=== PATIENT | male | born 2000 | race Two or more races ===

== ENCOUNTER 2019-01-14 15:35 | Emergency (ER) | payer BC, MEDICAID ==
--- NOTE | 2019-01-14 15:54 | ER Document Report ---
ED Medical Screen (RME) - General Chief Complaint: Fever Stated Complaint: WEAKNESS Time Seen by Provider: 01/14/19 15:47 Primary Care Provider: AZEEM SEGURA MD [Primary Care Provider] - Follow up as needed Mode of Arrival: Ambulatory Information source: Patient Notes: 18-year-old male presented to ED for complaint of nausea vomiting not feeling right feeling like he is hallucinating. He states that yesterday he became nauseated had a sore throat and did not feel correct. He states today he was tossing and turning and seeing tables and things that were not there and then finally realized that he was not asleep he was awake and seeing these things so became concerned woke his brother up and had him bring him to the emergency room. He states his girlfriend was recently diagnosed with strep and he needs to be checked out. He is alert oriented respirations regular and unlabored speaking in full sentences walks with a even steady gait. He does have a history of a tonsillectomy. He states he does not smoke drink or do any drugs. And lives with his brother. I have greeted and performed a rapid initial assessment of this patient. A com prehensive ED assessment and evaluation of the patient, analysis of test results and completion of medical decision making process will be conducted by an additional ED providers. - Related Data Allergies/Adverse Reactions: No Known Allergies Allergy (Unverified 01/14/19 15:48) Physical Exam - Vital signs Vitals: Temp Pulse Resp BP Pulse Ox 99.2 F 96 H 16 118/59 L 97 01/14/19 15:41 01/14/19 15:41 01/14/19 15:41 01/14/19 15:41 01/14/19 15:41 Course - Vital Signs Vital signs: Temp Pulse Resp BP Pulse Ox 99.2 F 96 H 16 118/59 L 97 01/14/19 15:41 01/14/19 15:41 01/14/19 15:41 01/14/19 15:41 01/14/19 15:41 Doctor's Discharge - Discharge Referrals: AZEEM SEGURA MD [Primary Care Provider] - Follow up as needed
[2019-01-14 16:16] LABS: ABSOLUTE EOSINOPHILS # (AUTO) 0.1 10^3/uL (0.0-0.6); ABSOLUTE LYMPHOCYTES (AUTO) 0.8 10^3/uL (0.5-4.7); ABSOLUTE MONOCYTES (AUTO) 1.2 10^3/uL (0.1-1.4); ABSOLUTE NEUT (AUTO) 8.8 10^3/uL (1.7-8.2); BASOPHILS % (AUTO) 0.4 % (0-2); EOSINOPHILS % (AUTO) 0.7 % (0-6); HEMATOCRIT 40.6 % (37.9-51.0); LYMPHOCYTES % (AUTO) 6.9 % (13-45); MEAN CORPUSCULAR HEMOGLOBIN 28.5 pg (27.0-33.4); MEAN CORPUSCULAR HGB CONC 34.5 g/dL (32.0-36.0); MEAN CORPUSCULAR VOLUME 83 fl (80-97); MONOCYTES % (AUTO) 10.9 % (3-13); PLATELET COUNT 223 10^3/uL (150-450); RED BLOOD COUNT 4.91 10^6/uL (4.35-5.55); RED CELL DISTRIBUTION WIDTH 14.2 % (11.5-14.0); SEGMENTED NEUTROPHILS % (AUTO) 81.1 % (42-78); TOTAL CELLS COUNTED % (AUTO) 100 %; WHITE BLOOD COUNT 10.9 10^3/uL (4.0-10.5)
[2019-01-14 16:33] LABS: ALBUMIN 5.2 g/dL (3.7-5.6); ALKALINE PHOSPHATASE 60 U/L (65-260); ANION GAP 12 (5-19); ASPARTATE AMINO TRANSFERASE 25 U/L (10-45); BILIRUBIN,DIRECT 0.3 mg/dL (0.0-0.4); BLOOD UREA NITROGEN 18 mg/dL (7-20); CARBON DIOXIDE 26 mmol/L (22-30); CHLORIDE 99 mmol/L (98-107); GLUCOSE 99 mg/dL (75-110); POTASSIUM 4.4 mmol/L (3.6-5.0)
[2019-01-14 16:46] LABS: APPEARANCE,URINE SLIGHTLY-CLOUDY; BILIRUBIN,URINE NEGATIVE (NEGATIVE); COLOR,URINE AMBER; GLUCOSE, URINE NEGATIVE (NEGATIVE); KETONES,URINE NEGATIVE (NEGATIVE); LEUKOCYTE ESTERASE,URINE NEGATIVE (NEGATIVE); NITRITE,URINE NEGATIVE (NEGATIVE); PROTEIN,URINE NEGATIVE (NEGATIVE); URINE SPECIFIC GRAVITY 1.029; UROBILINOGEN,URINE NEGATIVE mg/dL (<2.0)
[2019-01-14] MEDS ORDERED: FAMOTIDINE 20 MG TABLET PO ONE (16:50)
[2019-01-14] MEDS ORDERED: METOCLOPRAMIDE HCL ORAL SOLN 10 MG/10 ML UDCUP PO ONE (16:50)
[2019-01-14] MEDS ORDERED: MAG HYDROX/AL HYDROX/SIMETH SUSP 30 ML UDCUP PO ONE (16:50)
[2019-01-14] MEDS ORDERED: LIDOCAINE 2% VISCOUS SOLN 20 ML UDCUP PO ONE (16:50)
--- NOTE | 2019-01-14 16:51 | ER Document Report ---
ED General - General Chief Complaint: Fever Stated Complaint: WEAKNESS Time Seen by Provider: 01/14/19 15:47 Primary Care Provider: AZEEM SEGURA MD [Primary Care Provider] - Follow up as needed Mode of Arrival: Ambulatory Notes: Patient is a 18-year-old male presents to the emergency department with a chief complaint of fever. Patient states over the past 24 hours he is developed a sore throat, headache and one episode of vomiting. Patient states he woke up around 3 AM and vomited his dinner. Patient states he has not vomited since then. Patient reports a subjective fever with chills and cold sweats. Patient reports his girlfriend was recently diagnosed with strep throat and he is concerned he may be developing this. Patient states that as he was in and out of sleep last night he felt like he was hallucinating and fell a table that was really not there. Patient states he did come to the emergency department as he was hallucinating and this scared him. Patient also reports coughing up blood. Patient states this happens every morning and has been present for years. Patient states he is never been checked out for this. Patient states he did used to smoke cigarettes but has quit. Patient states he does smoke marijuana with his last use yesterday. Patient denies any other drug use. Patient reports generalized abdominal pain. TRAVEL OUTSIDE OF THE [place] IN LAST 30 DAYS: No - Related Data Allergies/Adverse Reactions: No Known Allergies Allergy (Unverified 01/14/19 15:48) Past Medical History - General Information source: Patient - Social History Smoking Status: Never Smoker Frequency of alcohol use: None Drug Abuse: None Lives with: Family Family History: None Patient has suicidal ideation: No Patient has homicidal ideation: No - Past Medical History Cardiac Medical History: Reports: None Pulmonary Medical History: Reports: None EENT Medical History: Reports: None Neurological Medical History: Reports: None Endocrine Medical History: Reports: None Renal/ Medical History: Reports: None. Denies: Hx Peritoneal Dialysis Malignancy Medical History: Reports None GI Medical History: Reports: None Musculoskeletal Medical History: Reports None Skin Medical History: Reports None Psychiatric Medical History: Reports: None Traumatic Medical History: Reports: None Infectious Medical History: Reports: None Surgical Hx: Negative Review of Systems - Review of Systems Constitutional: See HPI EENT: See HPI Cardiovascular: No symptoms reported Respiratory: See HPI Gastrointestinal: See HPI Genitourinary: No symptoms reported Male Genitourinary: No symptoms reported Musculoskeletal: No symptoms reported Skin: No symptoms reported Hematologic/Lymphatic: No symptoms reported Neurological/Psychological: No symptoms reported Physical Exam - Vital signs Vitals: Temp Pulse Resp BP Pulse Ox 99.2 F 96 H 16 118/59 L 97 01/14/19 15:41 01/14/19 15:41 01/14/19 15:41 01/14/19 15:41 01/14/19 15:41 Interpretation: Normal - Notes Notes: GENERAL: Well-appearing, well-nourished and in no acute distress. HEAD: Atraumatic, normocephalic. EYES: Pupils equal round and reactive to light, extraocular movements intact, sclera anicteric, conjunctiva are normal. ENT: TMs normal, nares patent, oropharynx clear without exudates. Moist mucous membranes. NECK: Normal range of motion, supple without lymphadenopathy or JVD. LUNGS: Breath sounds clear to auscultation bilaterally and equal. No wheezes rales or rhonchi. HEART: Regular rate and rhythm without murmurs, rubs or gallops. ABDOMEN: Soft, nontender, normoactive bowel sounds. No guarding, no rebound. No masses appreciated. BACK: No cervical, thoracic, lumbar midline tenderness. No saddle anesthesia, normal distal neurovascular exam. GENITOURINARY: Deferred. EXTREMITIES: Normal range of motion, no pitting or edema. No clubbing or cyanosis. NEUROLOGICAL: Cranial nerves II through XII grossly intact. Normal speech, normal gait. PSYCH: Normal mood, normal affect. SKIN: Warm, Dry, normal turgor, no rashes or lesions noted. Course - Re-evaluation Re-evalutation: 01/14/19 18:04 Upon reevaluation patient reports that his abdominal pain has improved since receiving the GI cocktail. I did inform the patient to take an [id number] Pepcid 20 mg daily for the next 30 days to see if this would help with his abdominal pain and "coughing up blood. "I did inform the patient at this time I do not think this is an emergent issue as this been going on for years. Patient does have a primary care physician that he will follow up with. I did inform the patient that his throat culture will return in the next 24 to 48 hours and he will be contacted if he needs to be placed on antibiotic. Patient verbalizes understanding and is in agreement with treatment plan at this time. Patient is in no acute distress and requesting something to drink. I did inform the patient to push fluids to stay hydrated. Patient placed on strict return precautions. Patient was educated to refrain from smoking as this can be an irritant. - Vital Signs Vital signs: Temp Pulse Resp BP Pulse Ox 99.2 F 96 H 16 118/59 L 97 01/14/19 15:41 01/14/19 15:41 01/14/19 15:41 01/14/19 15:41 01/14/19 15:41 - Laboratory Result Diagrams: 01/14/19 16:05 01/14/19 16:05 Laboratory results interpreted by me: 01/14/19 01/14/19 16:05 16:05 WBC 10.9 H RDW 14.2 H Lymph % (Auto) 6.9 L Absolute Neuts (auto) 8.8 H Seg Neutrophils % 81.1 H Alkaline Phosphatase 60 L Discharge - Discharge Clinical Impression: Sore throat (viral) Abdominal pain Qualifiers: Abdominal location: epigastric Qualified Code(s): R10.13 - Epigastric pain Gastritis Qualifiers: Gastritis type: unspecified gastritis Chronicity: chronic Gastritis bleeding: presence of bleeding unspecified Qualified Code(s): K29.50 - Unspecified chronic gastritis without bleeding Condition: Stable Disposition: HOME, SELF-CARE Additional Instructions: Today you are seen in the emergency department for sore throat, fever and coughing up blood. You were concerned that you may have had strep as your significant other was tested positive the other day. At this time your strep test was negative but we have sent off a culture which will return in the next 24 to 48 hours. If this is positive you will be called so we can prescribe you an antibiotic. Take Tylenol as needed for pain or fever. Please continue to push fluids to stay hydrated. We did obtain a chest x-ray as you had reported years of cough and blood. At this time there is no acute abnormality such as a cyst/mass, broken ribs. The coughing up of blood could be coming from your stomach due to a gastritis. Please try to avoid spicy or irritating foods, NSAIDs such as Aleve, aspirin, BC powders as this can irritate your stomach. Please take an [id number] Pepcid 20 mg every day for the next 30 days to see if this helps with your pain. Please follow-up with your primary care physician for repeat evaluation. Please return the emergency department if you develop shortness of breath, difficulty breathing, increased throat pain, high fever, rash, vomiting or any other concerning signs or symptoms. Sore Throat Sore throats may be caused by viruses, bacteria, or fungi. Most are due to a virus, and must get better on their own. Bacterial sore throats, particularly those due to "strep," need treatment with antibiotics. If an antibiotic is prescribed, be sure to take the medication for a full 10 days. Failure to take the antibiotic can result in complications such as rheumatic fever. Sometimes, an injection of antibiotics is given instead of pills or liquid. This single "shot" is equal in effectiveness to the oral medication. To relieve symptoms, take acetaminophen for pain. Sip clear liquids frequently, or eat popsicles or ice chips. Anesthetic sprays or lozenges may help. Make sure the air in the room is not too dry. Avoid using decongestants or antihistamines. Call the doctor if there is no improvement in two days, or if you have difficulty breathing, increasing throat pain, high fever, rash, or frequent vomiting. Gastritis You have an inflammation of the stomach called gastritis. This commonly causes upper abdominal pain, nausea, and vomiting. In severe cases, bleeding of the stomach lining can occur. Gastritis can be caused by bacteria or viruses, alcohol, or stomach-irritating drugs. Begin with sips of clear liquids. Take increasing amounts of fluid over the first 24 hours. Then start small amounts of bland foods (such as dry toast, applesauce, mashed potato). Gradually resume your usual diet. You should take antacids every two hours until the pain has subsided. Acid-suppressing drugs may be prescribed as well. Avoid aspirin, caffeine, tobacco, and alcohol. If the abdominal pain worsens, or there is evidence of major bleeding in the stomach (such as black, tarry stool, bloody or black vomit, or lightheadedness), you should return immediately. Call the doctor if you aren't improved in 24 to 36 hours. Referrals: AZEEM SEGURA MD [Primary Care Provider] - Follow up as needed
[2019-01-14 17:02] LABS: URINE AMPHETAMINES SCREEN NEGATIVE; URINE BARBITURATES SCREEN NEGATIVE; URINE BENZODIAZEPINES SCREEN NEGATIVE; URINE COCAINE SCREEN NEGATIVE; URINE MARIJUANA (THC) SCREEN UNCONFIRMED POSITIVE; URINE METHADONE SCREEN NEGATIVE; URINE PHENCYCLIDINE SCREEN NEGATIVE
--- NOTE | 2019-01-14 17:40 | RADIOLOGY REPORT (SQ) ---
EXAM DESCRIPTION: CHEST 2 VIEWS COMPLETED DATE/TIME: 01/14/2019 5:21 pm REASON FOR STUDY: COUGHING UP BLOOD COMPARISON: None. EXAM PARAMETERS: NUMBER OF VIEWS: two views TECHNIQUE: Digital Frontal and Lateral radiographic views of the chest acquired. RADIATION DOSE: NA LIMITATIONS: none FINDINGS: LUNGS AND PLEURA: No opacities, masses or pneumothorax. No pleural effusion. MEDIASTINUM AND HILAR STRUCTURES: No masses or contour abnormalities. HEART AND VASCULAR STRUCTURES: Heart normal size. No evidence for failure. BONES: No acute findings. HARDWARE: None in the chest. OTHER: No other significant finding. IMPRESSION: NO ACUTE DISEASE. TECHNICAL DOCUMENTATION: JOB ID: [id number] [id number] 2010 [employer]- All Rights Reserved Reading location - IP/workstation name: [email or web address]
[2019-01-14] MEDS ORDERED: ACETAMINOPHEN 325 MG TABLET PO ONE (18:04)
[2019-01-14 18:24] VITALS: BP 124/64
== END 2019-01-14 18:24 | disposition home or self-care (01) ==
LOC: ER 15:35
DX: K29.50 Unspecified chronic gastritis without bleeding (principal); R10.13 Epigastric pain; J02.9 Acute pharyngitis, unspecified; R53.1 Weakness; R50.9 Fever, unspecified
CPT/HCPCS: 36415; 87070; 87880; 85025; 80053; 81001; 80307; 71046; J3490 ×5; 99283

== ENCOUNTER 2019-02-23 18:58 | Emergency (ER) | payer MEDICAID ==
[2019-02-23 19:20] VITALS: BP 133/58
[2019-02-23] MEDS ORDERED: IBUPROFEN 800 MG TABLET PO ONE (19:32)
[2019-02-23] MEDS ORDERED: DIPH/PERTUSS(ACELL)/TETANUS VAC/PF 0.5 ML SYR (>=10YO) IM ONE (19:32)
--- NOTE | 2019-02-23 19:34 | ER Document Report ---
ED Medical Screen (RME) - General Stated Complaint: METAL SHAVINGS IN LEFT HAND Time Seen by Provider: 02/23/19 19:31 Primary Care Provider: AZEEM SEGURA MD [Primary Care Provider] - Follow up as needed Mode of Arrival: Ambulatory Information source: Patient Notes: Patient reports working with metal and getting a shard of metal to the left hand. Patient states that he was able to remove some pieces of metal from his hand but is concerned he may have a retained piece. Patient denies any fever. Patient uncertain when his last tetanus immunization was. I have greeted and performed a rapid initial assessment of this patient. A comprehensive ED assessment and evaluation of the patient, analysis of test results and completion of the medical decision making process will be conducted by additional ED providers. TRAVEL OUTSIDE OF THE [place] IN LAST 30 DAYS: No - Related Data Allergies/Adverse Reactions: No Known Allergies Allergy (Unverified 01/14/19 15:48) Past Medical History Renal/ Medical History: Denies: Hx Peritoneal Dialysis Physical Exam - Vital signs Vitals: Temp Pulse Resp BP Pulse Ox 98.3 F 81 16 133/58 H 97 02/23/19 19:18 02/23/19 19:18 02/23/19 19:18 02/23/19 19:18 02/23/19 19:18 - General Notes: Tenderness to dorsal left hand, no surrounding erythema Course - Vital Signs Vital signs: Temp Pulse Resp BP Pulse Ox 98.3 F 81 16 133/58 H 97 02/23/19 19:18 02/23/19 19:18 02/23/19 19:18 02/23/19 19:18 02/23/19 19:18 Doctor's Discharge - Discharge Referrals: AZEEM SEGURA MD [Primary Care Provider] - Follow up as needed
== END 2019-02-23 21:00 | disposition left against medical advice (07) ==
LOC: ER 18:58
DX: Z53.21 Procedure and treatment not carried out due to patient leaving prior to being seen by health care provider (principal); S61.442A Puncture wound with foreign body of left hand, initial encounter; W22.8XXA Striking against or struck by other objects, initial encounter
CPT/HCPCS: 99281